=== PATIENT | female | born 1950 | race Caucasian/White ===

== ENCOUNTER → 2022-08-16 13:18 | Outpatient (BNVA) | payer OTHER, SELFPAY | PROVIDERS: PCP Nurse Practitioner Family; Visit Provider Student in an Organized Health Care Education/Training Program | DX: M18.11 Unilateral primary osteoarthritis of first carpometacarpal joint, right hand (principal); M12.811 Other specific arthropathies, not elsewhere classified, right shoulder | CPT/HCPCS: 20600; 99202 ==

== ENCOUNTER 2023-03-01 14:30 | Outpatient (AMB) | payer OTHER, SELFPAY ==
--- NOTE | 2023-03-01 14:32 | A.OFFVIS_ITS ---
Intake Vital Signs 03/01/23 14:33 Height 5 ft 5 in Weight 139 lb 5.314 oz BMI 23.2 BP 144/62 H Blood Pressure Location Rt brachial Position Sitting Pulse 77 Pulse Source Pulse Oximeter Temp 97.7 F Temp Source Skin Pulse Oximetry (%) 96 Intake Visit Reasons: OA Intake Note: Pt presents today for follow up. Reports 2 broken toes following with Dr Dietrich upcoming MRI scheduled. Development Coordinator Required: No Accompanied by: Self / Same As Patient Allergies acetaminophen [From Percocet] Allergy (Mild, Verified 03/01/23 14:37) Unknown citalopram [From Celexa] Allergy (Mild, Verified 03/01/23 14:37) intolerance codeine Allergy (Mild, Verified 03/01/23 14:37) Unknown cyclobenzaprine [From Flexeril] Allergy (Mild, Verified 03/01/23 14:37) Unknown fluoxetine [From Prozac] Allergy (Mild, Verified 03/01/23 14:37) Unknown guaifenesin [From Guaiatussin AC] Allergy (Mild, Verified 03/01/23 14:37) tachycardia oxycodone [From Percocet] Allergy (Mild, Verified 03/01/23 14:37) Unknown trazadone Allergy (Mild, Uncoded 03/01/23 14:37) Unknown Medication List - Last Reconciled 03/01/23 by Martha Collier MD albuterol sulfate 90 mcg/actuation (Ventolin HFA) 2 puffs inhalation Q4-6H PRN ascorbic acid (vitamin C) 1 g PO BID atorvastatin 80 mg PO DAILY buspirone 5 mg PO BID cyclosporine 0.05% 1 drp ophthalmic (eye) BID diclofenac sodium 1% 2 grams topical QID diltiazem HCl ER (DILT-XR) 120 mg PO DAILY duloxetine 30 mg PO BID famciclovir 1,500 mg PO famotidine 40 mg PO DAILY fluticasone furoate-vilanterol 100-25 mcg/dose (Breo Ellipta) 1 ea inhalation DAILY gabapentin 100 mg PO QID glipizide ER 5 mg PO DAILY glucosamine-chondroitin 500-400 mg 1 tab PO BID lancets (FreeStyle Lancets) As directed lisinopril 10 mg PO DAILY magnesium oxide 420 mg PO BID metformin 1,000 mg PO BID multivitamin (Daily Multi-Vitamin tablet) 1 tab PO DAILY naproxen 500 mg PO DAILY PRN sitagliptin phosphate (Januvia) 100 mg PO DAILY HPI HPI Comments History of Present Illness Details 72-year-old female with generalized oste oarthritis returns for follow- up. Two months ago a large bottle of condition or fell on her right foot, since then she has been having right foot pain. She was evaluated by Dr. Dietrich and x-rays according to patient did not show a fracture. An MRI was ordered and it took a while to get approved. She states that the MRI scheduled March 08 and her appointment with Dr. Dietrich is a few days later. She continues to have pain in her right foot. States that steroid injection done for the right thumb last visit was helpful. She had a right shoulder injection by Orthopedics a few months ago which was helpful as well. She uses the Voltaren gel 4 times a day for her hand arthritis pain which does help, she also takes naproxen at least once daily, sometimes twice daily when needed. Initial history: This is a 72 year old female with generalized osteoarthritis who presents for evaluation of diffuse pain. Patient states that she has had arthritis for many years. She is to follow-up at [facility] and she was treated with NSAIDs. Mostly them due to and cortisone injections in the fingers. She is on gabapentin and duloxetine for fibromyalgia. Patent states that the majority of her pain is in her feet especially when she walks. We she also has right thumb pain. She has right shoulder pain. Her pain is much worse when it is cold and 2 days before it rains. She is requesting right thumb and right shoulder injections today [facility] Medical History History of torn meniscus of left knee Trigger finger Tendonitis Osteoarthritis Lumbar spondylosis senior living (current) use of non-steroidal anti-inflammatories (nsaid) Lateral epicondylitis of elbow Dupuytren's contracture of right hand Carpal tunnel syndrome Bursitis Fibromyalgia Osteopenia GERD (gastroesophageal reflux disease) Hyperlipidemia Hepatic steatosis Diabetes Flexor tenosynovitis of thumb Ankle fracture, right Loose right total knee arthroplasty Surgical History History of total right knee replacement S/P cervical disc replacement History of hysterectomy History of tonsillectomy Family History Maternal Aunt Breast cancer Father Heart attack Mother Heart disease Father Stroke Social History Alcohol intake: current Alcohol intake frequency: does not drink Patient Tobacco Use Status: Never used Tobacco Current occupational status: retired 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 Review of Systems [facility] [place] Reports arthralgias and Reports stiffness Physical Exam Vital Signs: Last Vital Signs Temp 97.7 F 03/01/23 14:33 Pulse 77 03/01/23 14:33 BP 144/62 H 03/01/23 14:33 Pulse Ox 96 03/01/23 14:33 BMI result Body Mass Index 23.2 Const General: cooperative, healthy appearing and comfortable Nutritional Appearance: average body habitus Limitations: no limitations HEENT Head: Yes normocephalic and Yes atraumatic Resp Effort & Inspection: normal respiratory effort and able to speak in complete sentences Cardio Rate: regular rate Rhythm: regular rhythm Heart sounds: S1 normal heart sound present and S2 normal heart sound present Extrem Other: Bilateral osteoarthritic changes of both hands prominent Heberden's and Martin's nodes. Mildly tender right 1st CMC joint Positive lift-off test right shoulder and positive empty can test left shoulder Right dorsal foot tenderness without significant swelling Assessment & Plan Assessment & Plan (1) Osteoarthritis of first carpometacarpal joint of right hand: Code(s): M18.11 - Unilateral primary osteoarthritis of first carpometacarpal joint, right hand Qualifiers: Osteoarthritis type: primary Qualified Code(s): M18.11 - Unilateral primary osteoarthritis of first carpometacarpal joint, right hand Plan: This is a 72-year-old female with generalized osteoarthritis presents for follow-up. Right 1st CMC joint Kenalog injection 08/2022 was helpful. Today patient's main complaint is right foot pain since a heavy bottle of s hampoo fell on her right foot. A right foot MRI is scheduled & she follows up with Orthopedics. Patient continues to take naproxen 500 mg once daily and sometimes twice daily. We discussed long-term side effects of NSAIDs including cardiovascular, nephro and GI toxicity. I asked patient to send me routine labs done by her PCP. Advised patient to try to take Tylenol up to 3000 mg daily in an attempt to reduce naproxen usage. Continue Voltaren gel for hands (2) Rotator cuff arthropathy of right shoulder: Code(s): M12.811 - Other specific arthropathies, not elsewhere classified, right shoulder Plan: Improved after injection by Orthopedics few months ago Plan I spent 18 minutes reviewing patient's chart, evaluating patient counseling patient and documenting in the chart Medications: Changed From naproxen 500 mg PO DAILY PRN 30 tabs 1RF pain To naproxen 500 mg PO BID PRN 30 tabs 2RF pain Coding Level of Care Code Est Pt Level 3 (00362) Diagnoses Primary osteoarthritis of first carpometacarpal joint of right hand M18.11 Osteoarthritis type: primary Rotator cuff arthropathy of right shoulder M12.811
[2023-03-01 14:33] VITALS: BP 144/62; PULSE 77; TEMP 36.5; O2SAT 96; BMI 23.2
== END 2023-03-01 15:00 | disposition home or self-care (01) ==
PROVIDERS: PCP Nurse Practitioner Family; Visit Provider Student in an Organized Health Care Education/Training Program
DX: M18.11 Unilateral primary osteoarthritis of first carpometacarpal joint, right hand (principal); M19.011 Primary osteoarthritis, right shoulder
CPT/HCPCS: 99213

== ENCOUNTER → 2023-03-01 14:30 | Outpatient (BNVA) | payer OTHER, SELFPAY | PROVIDERS: PCP Nurse Practitioner Family; Visit Provider Student in an Organized Health Care Education/Training Program | DX: M18.11 Unilateral primary osteoarthritis of first carpometacarpal joint, right hand (principal); M12.811 Other specific arthropathies, not elsewhere classified, right shoulder | CPT/HCPCS: 99212 ==